=== PATIENT | female | born 1960 | race Two or more races ===

== ENCOUNTER 2017-08-30 16:07 | Outpatient (CLI) | payer OTHER | END 2017-08-30 16:10 | disposition home or self-care (01) | LOC: LAB 16:07 | DX: M47.812 Spondylosis without myelopathy or radiculopathy, cervical region (principal); Z51.81 Encounter for therapeutic drug level monitoring ==

== ENCOUNTER 2017-09-07 07:28 | Outpatient (CLI) | payer OTHER | END 2017-09-07 09:32 | disposition home or self-care (01) | LOC: TOM 07:28 | DX: M47.812 Spondylosis without myelopathy or radiculopathy, cervical region (principal) | CPT/HCPCS: 74177; Q9965 ==

== ENCOUNTER → 2017-11-03 17:20 | Outpatient (CLI) | payer OTHER | END | disposition home or self-care (01) | LOC: RAD 17:20 | DX: M54.41 Lumbago with sciatica, right side (principal) ==

== ENCOUNTER 2021-02-05 13:15 | Emergency (ER) | payer OTHER ==
[~2021-02-05] VITALS: Ht 170.2 cm; Wt 60.8 kg
== END 2021-02-05 22:46 | disposition home or self-care (01) ==
LOC: ER 13:15
DX: K57.90 Diverticulosis of intestine, part unspecified, without perforation or abscess without bleeding (principal); R10.32 Left lower quadrant pain

== ENCOUNTER 2021-05-15 12:15 | Inpatient (IN) | payer OTHER ==
[~2021-05-15] VITALS: Ht 170.2 cm; Wt 60.8 kg
[2021-05-15] MEDS ORDERED: VISTARIL50 MG PO (14:12)
[2021-05-15] MEDS ORDERED: COZAAR50 MG PO (14:12)
[2021-05-15] MEDS ORDERED: GLIMEPIRIDE2 MG (14:12)
[2021-05-15] MEDS ORDERED: ARICEPT10 MG PO (14:13)
[2021-05-15] MEDS ORDERED: NAMENDA10 MG PO (14:13)
[2021-05-15] MEDS ORDERED: NEURONTIN800 MG PO (14:13)
[2021-05-20] MEDS ORDERED: SIMVASTATIN40 MG (08:47)
[2021-05-23] MEDS ORDERED: PERCOCET 5-3251 EACH PO (08:23)
[2021-05-23] MEDS ORDERED: ACID REDUCER20 M1 PO (08:25)
== END 2021-05-23 13:44 | disposition home or self-care (01) | DRG 330 ==
LOC: SURG 05-20 06:12 → O/R 05-20 06:12 → SURH 05-20 11:00 → SURG 05-20 14:06
PROVIDERS: ADMIT Surgery; ATTEND Surgery
PROC: 0DBP4ZZ Excision of Rectum, Percutaneous Endoscopic Approach (ICD-10-PCS; 2021-05-20)
PROC: 02HV33Z Insertion of Infusion Device into Superior Vena Cava, Percutaneous Approach (ICD-10-PCS; 2021-05-20)
PROC: 0DTN4ZZ Resection of Sigmoid Colon, Percutaneous Endoscopic Approach (ICD-10-PCS; principal; 2021-05-20 11:00)
DX: K57.32 Diverticulitis of large intestine without perforation or abscess without bleeding (principal); K55.1 Chronic vascular disorders of intestine; R10.32 Left lower quadrant pain; K59.09 Other constipation; G30.8 Other Alzheimer's disease; F02.80 Dementia in other diseases classified elsewhere, unspecified severity, without behavioral disturbance, psychotic disturbance, mood disturbance, and anxiety; I11.9 Hypertensive heart disease without heart failure